=== PATIENT | male | born 1960 | race Caucasian/White ===

== ENCOUNTER 2016-11-22 11:31 | Emergency (ER) | payer OTHER ==
[~2016-11-22] VITALS: Ht 182.9 cm; Wt 72.6 kg
--- NOTE | 2016-11-22 11:31 | NUR ---
Patient BIBA BLS, transferred to bed 3. RN evaluating patient at bedside.
[2016-11-22 11:35] VITALS: BP 172/100
--- NOTE | 2016-11-22 11:50 | NUR ---
PATIENT PRESENTS TO ED WITH SEVERE DIZZINESS AND NAUSEA X YESTERDAY . PT STATES WAS SEATED AT HOME WHEN DIZZINESS STARTED--ALSO HEADACHE SHARP PAIN BEHIND EYES] . ; SKIN IS PINK/WARM/DRY; AAOX4 WITH EVEN AND STEADY GAIT; LUNGS CLEAR BL; HR EVEN AND REGULAR; PT DENIES ANY FEVER, CP, SOB, OR COUGH AT THIS TIME; PATIENT STATES PAIN OF 8/10 AT THIS TIME; VSS; PATIENT POSITIONED FOR COMFORT; HOB ELEVATED; BEDRAILS UP X2; BED DOWN. ER MD MADE AWARE OF PT STATUS.
--- NOTE | 2016-11-22 12:05 | NUR ---
Dr. Walden evaluating patient at bedside.
[2016-11-22] MEDS ORDERED: NACL 0.9% 1,000 ML IV ONE (12:10)
--- NOTE | 2016-11-22 12:15 | NUR ---
X-Ray at bedside.
[2016-11-22 12:20] LABS: BASOPHILS # (AUTO) 0.1 K/uL (0.00-0.22); BASOPHILS % (AUTO) 2.5 % (0.0-2.0); EOSINOPHILS # (AUTO) 0.3 K/uL (0-0.4); EOSINOPHILS % (AUTO) 4.8 % (0.0-4.0); HEMATOCRIT 43.3 % (36-52); HEMOGLOBIN 14.3 g/dL (12.0-18.0); LYMPHOCYTES # (AUTO) 1.2 K/uL (2.0-11.5); LYMPHOCYTES % (AUTO) 20.7 % (20.5-51.1); MEAN CORPUSCULAR HEMOGLOBIN 29 pg (27-31); MEAN CORPUSCULAR HGB CONC 33 g/dL (33-37); MEAN CORPUSCULAR VOLUME 88 fL (80-94); MONOCYTES # (AUTO) 0.3 K/uL (0.8-1.0); MONOCYTES % (AUTO) 4.4 % (1.7-9.3); NEUTROPHILS % (AUTO) 67.6 % (42.2-75.2); PLATELET COUNT (AUTO) 221 K/uL (140-450); RED BLOOD CELL COUNT(AUTO) 4.94 MIL/uL (4.20-6.10); RED CELL DISTRIBUTION WIDTH 12.9 % (11.6-13.7)
[2016-11-22 12:28] LABS: ANION GAP 12.1 (8-16); CALCIUM 8.3 mg/dL (8.5-10.1); CARBON DIOXIDE 27.5 mmol/L (21-32); CREATININE 0.8 mg/dL (0.7-1.3); POTASSIUM 3.6 mmol/L (3.5-5.1)
[2016-11-22 12:30] LABS: WHITE BLOOD COUNT (AUTO) 5.9 K/uL (4.8-10.8)
[2016-11-22 12:34] LABS: ALBUMIN 3.1 g/dL (3.4-5.0); TOTAL BILIRUBIN 0.4 mg/dL (0.0-1.0); TOTAL PROTEIN, SERUM 6.1 g/dL (6.4-8.2)
--- NOTE | 2016-11-22 13:21 | NUR ---
resting with ou closed, no s/s resp distress---no emesis
--- NOTE | 2016-11-22 13:39 | NUR ---
TOLERATED PO'S WELL IN THE ER---DENIES N/V--- ADMITS FEELS BETTER, DIZZINESS SUBSIDED----
--- NOTE | 2016-11-22 13:40 | NUR ---
CALL [facility] FOR PT Patient discharged with v/s stable. Written and verbal after care instructions given and explained. Patient verbalized understanding. Ambulatory with steady gait. All questions addressed prior to discharge. Advised to follow up with PMD.
[2016-11-22 13:50] VITALS: BP 151/92
--- NOTE | 2016-11-22 13:51 | NUR ---
[facility] CALLED FOR PT---AMBULATORY WITH STEADY GAIT
== END 2016-11-22 13:40 | disposition home or self-care (01) ==
LOC: MED 11:31
DX: R53.1 Weakness (principal); R11.2 Nausea with vomiting, unspecified; F12.10 Cannabis abuse, uncomplicated; E11.9 Type 2 diabetes mellitus without complications; Z90.89 Acquired absence of other organs
CPT/HCPCS: 36415; 71010; 80053; 85025; 96360; 99285; J7030